=== PATIENT | male | born 1955 | race African-American/Black ===

== ENCOUNTER 2019-05-15 09:01 | Day surgery (SDC) | payer OTHER ==
[2019-05-14 13:44] VITALS: BMI 36.3
--- NOTE | 2019-05-15 07:52 | HP ---
HISTORY OF PRESENT ILLNESS: Georges Anne is a 64-year-old male comes for a colonoscopy for colon cancer screening. The patient has no GI symptoms. There is no family history of colon cancer. ALLERGIES: NO KNOWN DRUG ALLERGIES. SOCIAL HISTORY: The patient does not smoke or drink alcohol. MEDICAL ILLNESS: 1. Gout. 2. Hypertension. 3. Hyperlipidemia. 4. Obesity. 5. Facial reconstruction after accident in . 6. Surgery on right eye. PHYSICAL EXAMINATION: VITAL SIGNS: Pulse is 72, blood pressure 130/80. HEENT: Conjunctivae clear. NECK: Supple. No adenitis or thyromegaly. CARDIOVASCULAR SYSTEM: First and second heart sounds heard. LUNGS: Clear to auscultation. ABDOMEN: Soft. No organomegaly. No tenderness. EXTREMITIES: Reveal no edema. ADMITTING DIAGNOSIS: A 64-year-old male comes in for a colonoscopy for colon cancer screening. Job ID: [id number] MTDD
[2019-05-15] MEDS ORDERED: PROPOFOL 200 MG/20 ML VIAL ONE (14:37)
--- NOTE | 2019-05-16 09:38 | OP ---
DATE OF PROCEDURE: 05/15/2019 PROCEDURE PERFORMED: Colonoscopy. PREOPERATIVE DIAGNOSIS: A 64-year-old male, undergoing colonoscopy for colon cancer screening. POSTOPERATIVE DIAGNOSES: 1. Sigmoid diverticular disease. 2. Hemorrhoids. DESCRIPTION OF PROCEDURE: The patient was placed on his left lateral position and was given sedation by Anesthesia Department. A rectal exam was done before the scope was advanced into the rectum. No lesions were felt on rectal exam. A [employer]ax video colonoscope was introduced into the rectum and advanced all the way into the cecum. The prep was good. The mucosa appears normal throughout the colon with normal vascular pattern. The appendiceal orifice, ileocecal wall, and cecum, no pathology seen. Withdrawal of scope in the cecum, ascending colon, hepatic flexure, no pathology seen. The transverse colon, splenic flexure, descending colon, no lesion seen. The sigmoid colon showed scattered diverticular disease. Retroflexion of the scope in the rectum showed hemorrhoids. DISCHARGE PLANNING: This is a 64-year-old male came for a colonoscopy for colon cancer screening. The patient had no family history of colon cancer. He underwent colonoscopy and was found to have hemorrhoids and scattered sigmoid diverticulosis. DISCHARGE RECOMMENDATIONS: 1. High-fiber diet. 2. Metamucil once a day. 3. The patient advised to call me if he develops any abdominal pain, hematochezia, or fever. 4. Repeat colonoscopy in 10 years. Job ID: [id number]
== END 2019-05-15 11:25 | disposition home or self-care (01) ==
LOC: SDC 09:01
PROVIDERS: ATTEND Internal Medicine Gastroenterology
PROC: 0DJD8ZZ Inspection of Lower Intestinal Tract, Via Natural or Artificial Opening Endoscopic (ICD-10-PCS; principal; 2019-05-15)
DX: Z12.11 Encounter for screening for malignant neoplasm of colon (principal); K57.30 Diverticulosis of large intestine without perforation or abscess without bleeding; K64.9 Unspecified hemorrhoids; I10 Essential (primary) hypertension; E78.5 Hyperlipidemia, unspecified; M10.9 Gout, unspecified; E66.9 Obesity, unspecified; Z68.36 Body mass index [BMI] 36.0-36.9, adult
CPT/HCPCS: J2704